=== PATIENT | female | born 1945 | race Caucasian/White ===

== ENCOUNTER 2021-06-27 12:33 | Day surgery (SDC) | payer MEDICARE ==
[~2021-06-27] VITALS: Ht 180.3 cm; Wt 75.1 kg
[2021-06-27 13:07] VITALS: BP 151/76
== END 2021-06-27 18:55 | disposition home or self-care (01) ==
LOC: OUT 12:33
PROVIDERS: ATTEND Internal Medicine Gastroenterology
DX: K80.51 Calculus of bile duct without cholangitis or cholecystitis with obstruction (principal); K86.89 Other specified diseases of pancreas; E11.9 Type 2 diabetes mellitus without complications; E89.0 Postprocedural hypothyroidism; E78.00 Pure hypercholesterolemia, unspecified; Z20.822 Contact with and (suspected) exposure to COVID-19; Z79.82 Long term (current) use of aspirin; Z79.890 Hormone replacement therapy; Z79.899 Other long term (current) drug therapy; Z85.3 Personal history of malignant neoplasm of breast; Z86.010 Personal history of colon polyps; Z87.891 Personal history of nicotine dependence; Z88.8 Allergy status to other drugs, medicaments and biological substances; Z91.013 Allergy to seafood
CPT/HCPCS: 36415; 43242; 43264; 43274; 74328; 80053; 82962; 85025; 88172; 88173; 88307; 93005; C1769; C1894; C2625; J2250; J2405; J2704; J3010; J7120; Q9967; U0003; U0005